=== PATIENT | female | born 1955 | race Caucasian/White ===

== ENCOUNTER → 2016-12-01 | Outpatient (CLI) | payer BC ==
--- NOTE | 2016-12-01 13:56 | PCVCIMAG ---
APPROVED REPORT Study performed: 12/01/2016 11:28:50 EXAM: Comprehensive 2D, Doppler, and color-flow Echocardiogram Patient Location: Echo lab Status: routine BSA: 1.94 HR: 59 bpmBP: 156/98 mmHg Rhythm: NSR Other Information Study Quality: Adequate Risk Factors: Cardiac Risk Factors: HTN, Hyperlipidemia, abn EKG Indications Abnormal ECG Fatigue Chest Pain Hypertension/HDD 2D Dimensions LVEF(%): 69.52 (>50%) IVSd: 7.83 (7-11mm)LVOT Diam: 19.26 (18-24mm) LVDd: 54.49 mm PWd: 7.53 (7-11mm)Ascending Ao: 30.10 (22-36mm) LVDs: 32.95 (25-40mm) Left Atrium: 37.25 (27-40mm) Aortic Root: 21.56 mm LV Single Plane 4CH: 70.08 % LV Single Plane 2CH: 61.48 %[place]'s LVEF: 65.78 % Biplane EF: 67.1 % Volumes Left Atrial Volume (Systole) Single Plane 4CH: 59.62 mLSingle Plane 2CH: 55.88 mL Biplane LA Volume: 58.00 mLLA ESV Index: 30.00 mL/m2 Aortic Valve AoV Peak Izaiah.: 1.42 m/s AO Peak Gr.: 8.03 mmHgLVOT Max P.15 mmHg LVOT Max V: 1.02 m/s BJORN Vmax: 2.09 cm2 Mitral Valve E/A Ratio: 0.9 MV Decel. Time: 149.28 ms MV E Max Izaiah.: 0.74 m/s MV A Izaiah.: 0.80 m/s IVRT: 128.03 ms Pulmonary Valve PV Peak Izaiah.: 0.96 m/sPV Peak Gr.: 3.66 mmHg Pulmonary Vein P Vein S: 0.49 m/sP Vein A: 0.29 m/s P Vein D: 0.39 m/sP Vein A Dur.: 69.2 msec P Vein S/D Ratio: 1.26 Tricuspid Valve TR Peak Izaiah.: 1.98 m/s TR Peak Gr.: 15.75 mmHg TV Vmax: 0.74 m/sPA Pressure: 23.00 mmHg Left Ventricle The left ventricle is normal size. There is normal LV segmental wall motion. There is normal left ventricular wall thickness. Left ventricular systolic function is normal. The left ventricular ejection fraction is within the normal range. LVEF is 65-70%. The left ventricular diastolic function is normal. Right Ventricle The right ventricle is normal size. The right ventricular systolic function is normal. Atria The left atrium size is normal. The interatrial septum is intact with no evidence for an atrial septal defect. The right atrium size is normal. Aortic Valve The aortic valve is normal in structure. No aortic regurgitation is present. There is no aortic valvular stenosis. Mitral Valve The mitral valve is normal in structure. There is no mitral valve regurgitation noted. No evidence of mitral valve stenosis. Tricuspid Valve The tricuspid valve is normal in structure. Trace tricuspid regurgitation with a PA pressure of 23mmHg. Pulmonic Valve The pulmonary valve is normal in structure. There is no pulmonic valvular regurgitation. Great Vessels The aortic root is normal in size. The ascending aorta is normal in size. IVC is normal in size and collapses with >50% inspiration Pericardium There is no pericardial effusion. There is no pleural effusion. <Conclusion> The left ventricle is normal size. LVEF is 65-70%. The aortic valve is normal in structure. The mitral valve is normal in structure. The tricuspid valve is normal in structure. Trace tricuspid regurgitation with a PA pressure of 23mmHg. The pulmonary valve is normal in structure. The interatrial septum is intact with no evidence for an atrial septal defect.
== END | disposition home or self-care (01) ==
LOC: PCVCIMAG 11:09
PROVIDERS: ATTEND Internal Medicine
DX: I07.1 Rheumatic tricuspid insufficiency (principal); R94.31 Abnormal electrocardiogram [ECG] [EKG]; I10 Essential (primary) hypertension; E78.5 Hyperlipidemia, unspecified
CPT/HCPCS: 93306

== ENCOUNTER → 2016-12-19 | Outpatient (CLI) | payer BC ==
--- NOTE | 2016-12-19 11:40 | PCVCIMAG ---
EXAM: DUPLEX ULTRASOUND OF THE RIGHT GROIN INDICATION: Groin swelling and pain. FINDINGS: No pseudoaneurysm is present. The common femoral artery and vein are patent. No arteriovenous fistula is seen. IMPRESSION: Study is negative for pseudoaneurysm. LOC:[id number]
== END | disposition home or self-care (01) ==
LOC: PCVCIMAG 10:57
PROVIDERS: ATTEND Internal Medicine
DX: R19.09 Other intra-abdominal and pelvic swelling, mass and lump (principal)
CPT/HCPCS: 93926

== ENCOUNTER → 2018-09-12 | Outpatient (CLI) | payer BC ==
--- NOTE | 2018-09-12 17:07 | PCVCIMAG ---
EXAM: VENOUS DUPLEX RIGHT LEG INDICATION: Leg pain and swelling. FINDINGS: Right leg: No thrombus in the common femoral, main femoral, or popliteal veins. These veins are compressible with phasic flow. Calf veins are unremarkable where seen. IMPRESSION: No evidence of deep venous thrombosis in right lower extremity as detailed above. LOC:[id number]
--- NOTE | 2018-09-12 18:03 | PCVCIMAG ---
APPROVED REPORT Study performed: 09/12/2018 13:34:41 EXAM: Comprehensive 2D, Doppler, and color-flow Echocardiogram Patient Location: Echo lab Status: routine BSA: 2.01 HR: 62 bpmBP: 144/84 mmHg Rhythm: NSR Other Information Study Quality: Adequate Risk Factors: Cardiac Risk Factors: HTN Indications CAD edema 2D Dimensions IVSd: 12.93 (7-11mm) LVDd: 40.40 mm PWd: 13.01 (7-11mm)Ascending Ao: 31.07 (22-36mm) LVDs: 26.69 (25-40mm) Left Atrium: 40.92 (27-40mm) Aortic Root: 27.07 mm LV Single Plane 4CH: 70.45 % LV Single Plane 2CH: 64.04 % Biplane EF: 67.9 % Volumes Left Atrial Volume (Systole) Single Plane 4CH: 80.60 mLSingle Plane 2CH: 65.37 mL LA ESV Index: 36.00 mL/m2 Aortic Valve AoV Peak Izaiah.: 1.56 m/s AO Peak Gr.: 9.74 mmHgLVOT Max P.70 mmHg LVOT Max V: 1.47 m/s Mitral Valve E/A Ratio: 0.8 MV Decel. Time: 291.45 ms MV E Max Izaiah.: 0.79 m/s MV A Izaiah.: 1.02 m/s IVRT: 100.35 ms Pulmonary Valve PV Peak Izaiah.: 1.15 m/sPV Peak Gr.: 5.33 mmHg Pulmonary Vein P Vein S: 0.32 m/sP Vein A: 0.33 m/s P Vein D: 0.41 m/sP Vein A Dur.: 138.4 msec P Vein S/D Ratio: 0.78 Tricuspid Valve TR Peak Izaiah.: 2.38 m/s TR Peak Gr.: 22.74 mmHg TV Vmax: 0.57 m/s Left Ventricle The left ventricle is normal size. There is normal LV segmental wall motion. Mild concentric left ventricular hypertrophy. Left ventricular systolic function is normal. The left ventricular ejection fraction is within the normal range. LVEF is 60-65%. Grade I - abnormal relaxation pattern. Right Ventricle The right ventricle is normal size. The right ventricular systolic function is normal. Atria Left atrium is mildly dilated. The right atrium size is normal. Aortic Valve The aortic valve is normal in structure. No aortic regurgitation is present. There is no aortic valvular stenosis. Mitral Valve The mitral valve is normal in structure. Trace mitral regurgitation. No evidence of mitral valve stenosis. Tricuspid Valve The tricuspid valve is normal in structure. Trace tricuspid regurgitation with PAP of 30 mmHg. Pulmonic Valve The pulmonary valve is normal in structure. Mild to moderate pulmonic regurgitation. Great Vessels The aortic root is normal in size. IVC is normal in size and collapses >50% with inspiration. Pericardium There is no pericardial effusion. There is no pleural effusion. <Conclusion> The left ventricle is normal size. LVEF is 60-65%. Left atrium is mildly dilated. The aortic valve is normal in structure. The mitral valve is normal in structure. Trace mitral regurgitation. The tricuspid valve is normal in structure. Trace tricuspid regurgitation with PAP of 30 mmHg. The pulmonary valve is normal in structure. Mild to moderate pulmonic regurgitation. There is no pericardial effusion.
== END | disposition home or self-care (01) ==
LOC: PCVCIMAG 12:51
PROVIDERS: ATTEND Internal Medicine
DX: I37.1 Nonrheumatic pulmonary valve insufficiency (principal); M79.604 Pain in right leg; R60.0 Localized edema; I10 Essential (primary) hypertension
CPT/HCPCS: 93306; 93971